=== PATIENT | female | born 1965 | race Native Hawaiian/Other Pacific Islander ===

== ENCOUNTER 2017-12-07 13:51 | Outpatient (CLI) | payer OTHER ==
--- NOTE | 2017-12-07 15:57 | Mammography Report ---
RIGHT DIGITAL DIAGNOSTIC MAMMOGRAM: 12/07/17 13:51:00 CLINICAL: For clip placement immediately status post ultrasound biopsy of a lesion at 7 o'clock 2 cm from the nipple. COMPARISON:Recent [facility] mammogram and right breast ultrasound. FINDINGS: A biopsy clip is now identified at 7 o'clock and correlates with the lesion described on recent [facility] ultrasound report. However, there is also an irregular mass at 5 o'clock approximately 7 cm from the nipple. It measures 1.9 x 1.5 x 1.1 cm and is near the skin. This mass has apparently not been evaluated. IMPRESSION: 1. Concordant clip placement status post ultrasound biopsy of a lesion at 7 o'clock.2. A second suspicious lesion is identified at 5 o'clock 7 cm from the nipple and requires additional workup. Recommend return for additional right spot magnification views and targeted right breast ultrasound. BI-RADS CATEGORY: 0--needs additional Imaging
--- NOTE | 2017-12-07 16:01 | Ultrasound Report ---
ULTRASOUND GUIDED NEEDLE CORE BIOPSY RIGHT BREAST WITH CLIP PLACEMENT: 12/07/17 CLINICAL: Right breast mass at 7 o'clock 2 cm from the nipple. COMPARISON :Recent [facility] ultrasound and right mammogram. FINDINGS: The procedure was explained to the patient and informed consent was obtained. Ultrasound demonstrated the previously described irregular solid heterogeneous hypoechoic lesion at 7 o'clock 2-3 cm from the nipple.. I marked the breast with a felt tip marker and a time out was called. The skin was prepped with Betadine and anesthetized with 1% lidocaine. Needle core biopsy was performed through a tiny dermatotomy using ultrasound guidance, 2% lidocaine with epinephrine for deep anesthesia and a 14-gauge Achieve biopsy device. 3 cores were obtained and placed in formalin. A clip was deployed within the mass. The patient tolerated the procedure well and there were no apparent complications. Hemostasis was achieved with minimal pressure and a sterile dressing was applied. A two view mammogram demonstrated concordant placement of the clip. The post procedure mammogram also showed a second lesion at 5 o'clock 7 cm from the nipple that warrants additional workup. Please see the postprocedure mammogram report for more detail. She left the department in good condition and was given instructions for wound care and followup. IMPRESSION: 1. Uncomplicated ultrasound guided needle core biopsy with clip placement right breast at 7 o'clock. 2. A second lesion at 5 o'clock warrants additional workup. Please see the postprocedure mammogram report for more detail.
== END 2017-12-07 13:52 | disposition home or self-care (01) ==
LOC: SPVWC 13:51
PROVIDERS: ATTEND General Practice
DX: L92.8 Other granulomatous disorders of the skin and subcutaneous tissue (principal); B96.89 Other specified bacterial agents as the cause of diseases classified elsewhere
CPT/HCPCS: 88305; 88312

== ENCOUNTER 2017-12-15 15:01 | Outpatient (CLI) | payer OTHER ==
--- NOTE | 2017-12-15 16:46 | Ultrasound Report ---
RIGHT DIGITAL DIAGNOSTIC MAMMOGRAM : 12/15/17 15:01:00 CLINICAL: Right upper outer ultrasound guided needle biopsy on 12/07/17 with pathologic result of benign granulomatous disease. At the time of the biopsy it was noted that there was a second lesion in the lower inner right breast that apparently had not been worked up. COMPARISON:12/07/17 FINDINGS: Routine views plus spot magnification MLO and cc views were performed. An irregular mass is identified contiguous to thickened skin at 5 o'clock approximately 7 cm from the nipple.It measures approximately 1.7 cm maximum. No suspicious calcifications. Ultrasound of the right breast was performed and demonstrated a heterogeneous hypoechoic superficial mass at 5 o'clock approximately 3 cm from the nipple. It measures approximately 1.0 x 0.9 x 0.7 cm and correlates with the mammographic mass. IMPRESSION: A suspicious 1 cm right breast mass at 5 o'clock 3 cm from the nipple.According to the patient, she had mastitis approximately 30 years ago and a recent biopsy of the right breast revealed granulomatous pathology. Recommend ultrasound guided needle core biopsy to exclude malignancy. BI-RADS CATEGORY: 4--Suspicious I discussed the findings and the recommendation for ultrasound guided needle biopsy with the patient and her son who interpreted for me. ACR BI-RADS MAMMOGRAPHIC CODES: 0 = Needs additional imaging evaluation; 1 = Negative; 2 = Benign; 3 = Probably benign; 4 = Suspicious; 5 = Malignant; 6 = Known biopsy-proven malignancy COMMENT: 1. Dense breast tissue, i.e., adenosis, fibrocystic changes, etc., may obscure an underlying neoplasm. 2. Approximately 10% of cancers are not detected with mammography. 3. A negative mammography report should not delay biopsy if a clinically suspicious mass is present. COMMENT: Patient follow-up letters are generated via our [employer] application.
== END 2017-12-15 15:02 | disposition home or self-care (01) ==
LOC: SPVWC 15:01
PROVIDERS: ATTEND General Practice
DX: N63.11 Unspecified lump in the right breast, upper outer quadrant (principal)

== ENCOUNTER 2018-01-20 09:44 | Outpatient (CLI) | payer OTHER ==
--- NOTE | 2018-01-20 12:20 | Ultrasound Report ---
Right breast ultrasound: The patient presented for aspiration/biopsy of a complex subcutaneous area identified on recent ultrasound in the 5:00 location 3 cm from the nipple. Imaging today however cannot identify a similar finding. It is of note that the patient has a subcutaneous lobulated density in the 6:00 location near the chest wall. The patient has a surgical scar in this location and ultrasound would appear to demonstrate an area of fibrosis consistent with the scar but no other finding. Verbal consultation with Dr. Deleon regarding prior mammograms on this patient suggests that this density may not have been present in October of 2017 on her mammogram at [facility]. I have requested the patient to have these images put on a disc so that we may view them and confirm comparison. Additional evaluation may be necessary if it in fact is new. Impressions: 1. The previously identified finding is no longer present and needs no further evaluation. 2. Questionable new mammographic density requiring comparison with prior exams. When these are made available a comparison report will be issued. BI-RADS CATEGORY: 0 = Needs additional imaging evaluation ACR BI-RADS MAMMOGRAPHIC CODES: 0 = Needs additional imaging evaluation; 1 = Negative; 2 = Benign; 3 = Probably benign; 4 = Suspicious; 5 = Malignant; 6 = Known biopsy-proven malignancy COMMENT: 1. Dense breast tissue, i.e., adenosis, fibrocystic changes, etc., may obscure an underlying neoplasm. 2. Approximately 10% of cancers are not detected with mammography. 3. A negative mammography report should not delay biopsy if a clinically suspicious mass is present.
== END 2018-01-20 09:45 | disposition home or self-care (01) ==
LOC: SPVWC 09:44
PROVIDERS: ATTEND General Practice
DX: N63.10 Unspecified lump in the right breast, unspecified quadrant (principal)

== ENCOUNTER 2018-02-15 13:03 | Outpatient (CLI) | payer OTHER ==
--- NOTE | 2018-02-15 16:51 | Ultrasound Report ---
ULTRASOUND RIGHT UPPER ARM NONVASCULAR: 02/15/18 CLINICAL: Mass/swelling FINDINGS: Ultrasound of the lateral upper right arm demonstrated a solid soft heterogeneous hypoechoic mass measuring at least 5 x 2 x 5 cm. It has echogenic linear septations. No distinct capsule or pseudocapsule. IMPRESSION: A solid probably fatty mass. Ultrasound characteristics and clinical characteristics suggest benign lipoma. The ultrasound measurements may underestimate the true size of the mass. CT or MRI would be more accurate in determining the exact size of the mass. RECOMMENDATION: Clinical followup.
--- NOTE | 2018-02-16 14:52 | Ultrasound Report ---
RIGHT BREAST ULTRASOUND: 02/15/18 13:03:00 CLINICAL: The patient return for reevaluation for possible biopsy. COMPARISON: 12/15/17 FINDINGS: Ultrasound of the right breast was performed at 5 o'clockand fail to demonstrate a lesion for biopsy. IMPRESSION: Negative right breast ultrasound with no suspicious finding. A probably benign mammographic asymmetry. BI-RADS 3 - - Probably Benign RECOMMENDATION: Six month followup right mammogram.
== END 2018-02-15 13:04 | disposition home or self-care (01) ==
LOC: SPVWC 13:03
PROVIDERS: ATTEND General Practice
DX: R22.2 Localized swelling, mass and lump, trunk (principal)

== ENCOUNTER 2019-02-14 08:11 | Outpatient (CLI) | payer OTHER ==
--- NOTE | 2019-02-14 15:28 | Mammography Report ---
BILATERAL DIGITAL SCREENING MAMMOGRAM WITH CAD INDICATION: Routine screening mammography. TECHNIQUE: Digital bilateral 2D mammography was obtained in the craniocaudal and mediolateral obliq ue projections. This examination was interpreted with the benefit of Computer-Aided Detection analysi s. COMPARISON: 12/07/2017 FINDINGS: Breast Density: The breasts are almost entirely fatty. There is no evidence of dominant mass, suspicious calcifications or architectural distortion in eith er breast. A right outer biopsy clip. IMPRESSION:No mammographic evidence of malignancy. BI-RADS Category 1: Negative. No mammographic evidence of malignancy. Recommend routine screening m ammography in one year. A "normal" or negative report should not discourage follow up or biopsy of a clinically significant f inding. A written summary of these findings will be mailed to the patient. The patient will be entered into a mammography reporting system which will generate a reminder letter for the patient's next appointmen t at the appropriate interval. The [employer] recommends yearly mammograms starting at age 40 and continuing as l miya as a woman is in good health. Breast MRI is recommended for women with an approximate 20-25% or greater lifetime risk of breast cancer, including women with a strong family history of breast or ova sayda cancer or who have been treated for Hodgkin's disease. Signer Name: Ron Segal MD Signed: 02/14/2019 3:24 PM Workstation Name: [id number]
== END 2019-02-14 08:12 | disposition home or self-care (01) ==
LOC: SPVWC 08:11
PROVIDERS: ATTEND Internal Medicine
DX: Z12.31 Encounter for screening mammogram for malignant neoplasm of breast (principal)
CPT/HCPCS: 77067

== ENCOUNTER 2020-12-23 05:55 | Day surgery (SDC) | payer OTHER ==
[2020-12-23] MEDS ORDERED: ACETAMINOPHEN 500 MG TAB PO SCH (06:00)
[2020-12-23] MEDS ORDERED: MIDAZOLAM 2 MG/2 ML INJ IV NR (06:00)
[2020-12-23] MEDS ORDERED: LACTATED RINGERS 1,000 ML IV SCH (06:00)
[2020-12-23] MEDS ORDERED: BACTERIOSTATIC SODIUM CHLORIDE 0.9% 30 ML VIAL INFILTRATI ONE (06:20)
[2020-12-23] MEDS ORDERED: fentaNYL 100 MCG/2 ML INJ ONE (07:09)
[2020-12-23] MEDS ORDERED: LIDOCAINE MPF (2%) 20 MG/1 ML VIAL 5 ML ONE (07:09)
[2020-12-23] MEDS ORDERED: ONDANSETRON 4 MG/2 ML INJ ONE (07:09)
[2020-12-23] MEDS ORDERED: propofoL 200 MG/20 ML VIAL IV ONE ×2 (07:10→08:22)
[2020-12-23] MEDS ORDERED: MIDAZOLAM 5 MG/5 ML INJ MDV IV ONE (07:17)
[2020-12-23] MEDS ORDERED: ePHEDrine SULFATE 50 MG/1 ML INJ ONE (07:18)
[2020-12-23] MEDS ORDERED: ceFAZolin/STERILE WATER 2 GM/20 ML SYRINGE IV NR (07:21)
--- NOTE | 2020-12-23 07:24 | Anesthesia Consultation ---
Anesthesia Consult and Med Hx Date of service: 12/23/20 - Airway Anesthetic Teeth Evaluation: Dentures ROM Head & Neck: Adequate Mental/Hyoid Distance: Adequate Mallampati Class: Class II Intubation Access Assessment: Probably Good - Pre-Operative Health Status ASA Pre-Surgery Classification: ASA1 Proposed Anesthetic Plan: MAC - Pulmonary Hx Smoking: No Hx Respiratory Symptoms: No - Cardiovascular System Hx Hypertension: No - Central Nervous System CVA: No - Endocrine Hx Renal Disease: No Hx Liver Disease: No Hx Insulin Dependent Diabetes: No Hx Non-Insulin Dependent Diabetes: No Hx Thyroid Disease: No - Other Systems Hx Obesity: Yes (BMI 32) - Additional Comments Anesthesia Medical History Comments: No hx anesthetic complications.
[2020-12-23] MEDS ORDERED: ONDANSETRON 4 MG/2 ML INJ IV PRN (07:25)
[2020-12-23] MEDS ORDERED: HYDROcodone/ACETAMINOPHEN 5-325 MG TAB PO PRN (07:25)
[2020-12-23] MEDS ORDERED: HYDROmorphone 1 MG/1 ML INJ IV PRN (07:25)
--- NOTE | 2020-12-23 07:25 | Anesthesia Day of Surgery ---
Anesthesia Day of Surgery - Day of Surgery Patient Examined: Yes Patient H&P Reviewed: Yes Patient is NPO: Yes
[2020-12-23] MEDS ORDERED: LIDOCAINE (1%) 10 MG/1 ML VIAL 20 ML MDV ONE (07:27)
[2020-12-23] MEDS ORDERED: BUPIVACAINE/PF (0.25%) 2.5 MG/ML 30 ML VIAL INFILTRATI ONE ×2 (07:27→08:23)
[2020-12-23] MEDS ORDERED: LIDOCAINE (1%) 10 MG/1 ML VIAL 20 ML MDV INFILTRATI ONE (08:23)
[2020-12-23] MEDS ORDERED: SODIUM CHLORIDE 0.9% IRR 1,500 ML BOTTLE IR ONE (08:24)
--- NOTE | 2020-12-23 08:38 | Short Stay Summary ---
Short Stay Documentation Date of service: 12/23/20 - History Principal diagnosis: SOFT TISSUE MASS RIGHT ARM H&P: obtained from office - Allergies and Medications Current Medications: Allergies No Known Allergies Allergy (Unverified 12/17/20 15:14) Home Medications Medication Instructions Recorded Confirmed Last Taken Type Vitamin B Complex 1 tab PO DAILY 12/17/20 12/17/20 12/22/20 History Vitamin B12 1 tab PO DAILY 12/17/20 12/17/20 12/22/20 History Vitamin D (Nf) 1 tab PO DAILY 12/17/20 12/17/20 12/22/20 History Active Medications Acetaminophen (Acetaminophen 500 Mg Tab) 1,000 mg PO PREOP STEFANIE Stop: 12/23/20 20:00 Last Admin: 12/23/20 06:50 Dose: 1,000 mg Documented by: Hydrocodone Bitart/Acetaminophen (Hydrocodone/Acetaminophen 5-325 Mg Tab) 2 each PO ONCE PRN PRN Reason: Pain, Moderate (4-6) Stop: 12/23/20 20:00 Cefazolin Sodium (Cefazolin/Sterile Water 2 Gm/20 Ml Syringe) 2 gm IV PREOP NR Stop: 12/23/20 20:00 Hydromorphone HCl (Hydromorphone 1 Mg/1 Ml Inj) 0.5 mg IV Q10MIN PRN PRN Reason: Pain , Severe (7-10) Stop: 12/23/20 20:00 Lactated Ringer's (Lactated Ringers) 1,000 mls @ 100 mls/hr IV DIRECT STEFANIE Stop: 12/23/20 23:59 Last Admin: 12/23/20 06:55 Dose: 100 mls/hr Documented by: Midazolam HCl (Midazolam 2 Mg/2 Ml Inj) 2 mg IV PREOP NR Stop: 12/23/20 20:00 Last Admin: 12/23/20 07:15 Dose: 2 mg Documented by: Ondansetron HCl (Ondansetron 4 Mg/2 Ml Inj) 4 mg IV ONCE PRN PRN Reason: Nausea And Vomiting Stop: 12/23/20 20:00 - Brief post op/procedure progress note Date of procedure: 12/23/20 Pre-op diagnosis: soft tissue mass right arm Post-op diagnosis: same Procedure: excision soft tissue mass right arm Anesthesia: MAC, local Findings: 9 cm lobulated, fatty soft tissue mass consistent with lipoma Surgeon: SANDER PARMAR Estimated blood loss: minimal Pathology: list (soft tissue mass right arm) Specimen disposition: to lab Condition: stable - Hospital course Hospital course: Pt observed in PACU and discharged to home in stable condition when criteria met - Disposition Condition at discharge: Good Disposition: DC- TO HOME OR SELFCARE Short Stay Discharge Plan Activity: other (no driving if taking prescription pain medications) Diet: regular Wound: open to air, per your surgeon's advice Additional Instructions: SEE PRINTED DISCHARGE INSTRUCTIONS Follow up with: DOMINGO DE LOS SANTOS MD [Primary Care Provider] - 7 Days SANDER PARMAR DO [Staff Physician] - 14 Days Prescriptions: HYDROcodone/APAP 5-325 [[place] 5/325] 1 each PO Q6HR PRN #10 tablet PRN Reason: Pain , Severe (7-10)
[2020-12-23 09:55] VITALS: BP 114/68
--- NOTE | 2020-12-23 10:13 | Post Anesthesia Evaluation ---
- Post Anesthesia Evaluation Patient Participated: Yes Airway Patent: Yes Stable Respiratory Function: Yes Nausea/Vomiting: No Temp > 96.8F: Yes Pain Manageable: Yes Adequeate Hydration: Yes Anesthesia Complications: No
--- NOTE | 2020-12-23 15:08 | Operative Report ---
Operative Report Operative Report: Date of procedure: 12/23/20 Pre-op diagnosis: soft tissue mass right arm Post-op diagnosis: same Procedure: excision soft tissue mass right arm Anesthesia: MAC, local Findings: 9 cm lobulated, fatty soft tissue mass consistent with lipoma Surgeon: SANDER PARMAR Estimated blood loss: minimal Pathology: list (soft tissue mass right arm) Specimen disposition: to lab Condition: stable Hospital course: Pt observed in PACU and discharged to home in stable condition when criteria met HPI and indication: Patient is a 55-year-old female with a soft tissue mass of the right arm. Patient presented to the surgery clinic for evaluation for excision. All risk, benefits, alternatives to surgery were discussed with the patient questions answered. Consent obtained for excision of soft tissue mass of right arm. Procedure in detail: Patient was identified in the preoperative area, taken back to the operating room, and placed on the operating room table in supine position. The right arm was adducted across the chest and taped into position. After anesthesia was induced, the right arm was prepped and draped in usual sterile fashion and a timeout was performed. Local anesthetic was infiltrated into the skin at the intended incision site. A vertical incision was made in the skin over the mass using a 15 blade. Dissection was carried down through the skin and subcutaneous tissue using electrocautery. The mass was encountered and dissected from the capsule and surrounding tissue using a combination of blunt dissection with a hemostat and electrocautery. Once normal fatty tissue was identified the mass was excised in its entirety using Bovie electrocautery. The mass was lobulated and fatty consistent with lipoma. This was then passed off the table as a specimen measuring 9cm. The wound was then irrigated and hemostasis achieved with electrocautery. Once hemostasis was ensured, the deep dermal layer was closed using interrupted 3-0 Vicryl sutures. The skin was closed with 4-0 Monocryl subcuticular stitches and skin glue. At the end of the case, all sponge, instrument, sharp counts were correct 2. The patient was awoken from anesthesia and taken to PACU in stable condition.
== END 2020-12-23 05:56 | disposition home or self-care (01) ==
LOC: OR 05:55
PROVIDERS: ATTEND Surgery
DX: M79.89 Other specified soft tissue disorders (principal); R22.31 Localized swelling, mass and lump, right upper limb; D17.21 Benign lipomatous neoplasm of skin and subcutaneous tissue of right arm; E78.00 Pure hypercholesterolemia, unspecified; I10 Essential (primary) hypertension; E66.9 Obesity, unspecified; Z79.899 Other long term (current) drug therapy; Z87.440 Personal history of urinary (tract) infections; Z98.890 Other specified postprocedural states; Z68.32 Body mass index [BMI] 32.0-32.9, adult
CPT/HCPCS: 24071; 88304; J0690; J2250; J2405; J2704; J3010; J7120; 88307

== ENCOUNTER 2022-02-02 08:20 | Outpatient (CLI) | payer OTHER ==
--- NOTE | 2022-02-02 14:09 | Mammography Report ---
DIGITAL SCREENING MAMMOGRAM WITH CAD, 02/02/2022 CLINICAL INFORMATION / INDICATION: Routine screening mammography. SCREENING MAMMOGRAM TECHNIQUE: Digital bilateral 2D mammography was obtained in the craniocaudal and mediolateral obliqu e projections. This examination was interpreted with the benefit of Computer-Aided Detection analysis . COMPARISON: 02/14/2019. FINDINGS: Breast Density: There are scattered areas of fibroglandular density. No dominant mass, suspicious calcifications, or architectural distortion in either breast. Postbiopsy change right breast. IMPRESSION: No mammographic evidence of malignancy. Follow up recommendation: Routine yearly screening mammogram. BI-RADS Category 2: BENIGN. A "normal" or negative report should not discourage follow up or biopsy of a clinically significant f inding. A written summary of these findings will be mailed to the patient. The patient will be entered into a mammography reporting system which will generate a reminder letter for the patient's next appointmen t at the appropriate interval. The [employer] recommends yearly mammograms starting at age 40 and continuing as l miya as a woman is in good health. Breast MRI is recommended for women with an approximate 20-25% or greater lifetime risk of breast cancer, including women with a strong family history of breast or ova sayda cancer or who have been treated for Hodgkin's disease. Signer Name: Tristan Renee MD Signed: 02/02/2022 2:04 PM Workstation Name: [id number]
== END 2022-02-02 08:21 | disposition home or self-care (01) ==
LOC: SPVWC 08:20
PROVIDERS: ATTEND Internal Medicine
DX: Z12.31 Encounter for screening mammogram for malignant neoplasm of breast (principal)
CPT/HCPCS: 77067